=== PATIENT | male | born 1995 | race Caucasian/White ===

== ENCOUNTER → 2018-07-06 21:40 | Emergency (ER) | payer OTHER ==
--- NOTE | 2018-07-06 22:31 | ED ---
Laceration/Wound HPI - HPI Summary HPI Summary: 22 year old M presenting to [facility] complains of laceration to the right eyebrow s /p being hit in the face with a hockey stick while playing ice hockey with his friends one hour ago. The patient rates the pain 2/10 in severity. Symptoms aggravated by nothing. Symptoms alleviated by nothing. Patient states the laceration was bleeding after but has now stopped. Patient denies blurred vision. - History of Current Complaint Stated Complaint: FACIAL INJURY Time Seen by Provider: 07/06/18 22:20 Hx Obtained From: Patient Onset/Duration: Lasting Hours - 1, Still Present Current Severity: Mild Pain Intensity: 2 Pain Scale Used: 0-10 Numeric - Allergy/Home Medications Allergies/Adverse Reactions: Allergies Allergy/AdvReac Type Severity Reaction Status Date / Time No Known Allergies Allergy Verified 07/06/18 22:14 PMH/Surg Hx/FS Hx/Imm Hx Previously Healthy: Yes Respiratory History: Denies: Hx Asthma Sensory History: Denies: Hx Contacts or Glasses Opthamlomology History: Denies: Hx Contacts or Glasses - Surgical History Surgery Procedure, Year, and Place: None Infectious Disease History: No Infectious Disease History: Denies: Traveled Outside the [place] in Last 30 Days - Family History Known Family History: Negative: Blood Disorder - Social History Hx Substance Use: No Substance Use Type: Reports: None Hx Tobacco Use: No Smoking Status (MU): Never Smoked Tobacco Review of Systems Negative: Blurred Vision Positive: Other - laceration to right eyebrow All Other Systems Reviewed And Are Negative: Yes Physical Exam - Summary Physical Exam Summary: Appearance: Well-appearing, Well-nourished, lying in bed comfortable Skin: 1.5 cm laceration on the temporal aspect of the right upper lid with associated swelling and bruising. The wound is not actively bleeding and there is no gaping Eyes: sclera anicteric, no conjunctival pallor ENT: mucous membranes moist Neck: deferred Respiratory: No signs of respiratory distress Cardiovascular: Appears well perfused, pulses are nml Abdomen: deferred Musculoskeletal: Moving all 4 extremities without obvious discomfort Neurological: Awake and alert, mentation is normal, speech is fluent and appropriate Psychiatric: affect is normal, does not appear anxious or depressed Triage Information Reviewed: Yes Vital Signs On Initial Exam: Initial Vitals Temp Pulse Resp BP Pulse Ox 98.7 F 77 16 146/78 98 07/06/18 22:11 07/06/18 22:11 07/06/18 22:11 07/06/18 22:11 07/06/18 22:11 Vital Signs Reviewed: Yes Diagnostics - Vital Signs Vital Signs Temp Pulse Resp BP Pulse Ox 07/06/18 22:11 98.7 F 77 16 146/78 98 - Laboratory Lab Statement: Any lab studies that have been ordered have been reviewed, and results considered in the medical decision making process. Laceration Repair Course/Dx - Course Course Of Treatment: 22 year old M presenting to [facility] complains of laceration to the right eye s/p being hit in the face with a hockey stick while playing ice hockey with his friends one hour ago. He was instructed to clean the wound with soap and water and to hold down on wound with pressure to control bleeding. Patient understands to return to ED for new or worsening symptoms. He is agreeable to be discharged home. - Clinical Impression Provider Diagnoses: Laceration of right eyebrow Discharge - Sign-Out/Discharge Documenting (check all that apply): Patient Departure - Discharge - Discharge Plan Condition: Good Disposition: HOME Patient Education Materials: Laceration (ED) Referrals: No Primary Care Phys,NOPCP [Primary Care Provider] - Additional Instructions: When you get home, take a shower and use soap and a clean cloth to clean the wound. It will probably start to bleed again, so just apply pressure after the shower for 5 minutes and it should stop. I don't think this wound would benefit from closure with stitches or tissue adhesive (skin glue). - Attestation Statements Document Initiated by Scribe: Yes Documenting Scribe: Madhuri Fields Provider For Whom Radha is Documenting (Include Credential): Lenard Cherry MD Scribe Attestation: I, Madhuri Fields, scribed for Lenard Cherry MD on 07/07/18 at 0652. Status of Scribe Document: Ready
[2018-07-06 22:52] VITALS: BP 127/76
== END | disposition home or self-care (01) ==
LOC: ED 21:40
DX: S01.111A Laceration without foreign body of right eyelid and periocular area, initial encounter (principal); W21.210A Struck by ice hockey stick, initial encounter; Y93.22 Activity, ice hockey; Y92.9 Unspecified place or not applicable
CPT/HCPCS: 99282